=== PATIENT | male | born 2000 | race Caucasian/White ===

== ENCOUNTER 2022-01-21 10:05 | Emergency (ER) | payer OTHER, SELFPAY ==
[2022-01-21 10:15] VITALS: BP 160/89; PULSE 105; RESP 18; TEMP 36.8; O2SAT 98; BMI 26.4
--- NOTE | 2022-01-21 10:22 | W.ED.HA ---
HPI - Headache General: Chief Complaint: Headache Stated Complaint: hit head/ headaches Time Seen by Provider: 01/21/22 10:13 Source: patient Mode of arrival: ambulatory Limitations: no limitations History of Present Illness: 21-year-old male who states that he did hit his head on a cabinet Tuesday night. He states he has had some nausea with headaches since then. He states he had worsening headache yesterday but states today his headaches actually improved he states headaches currently 2 out of 10 he had no loss of conscious denies any vomiting denies any worsening improving factors. Denies any neck pain Associated symptoms: Deny chest pain, fever(s), nausea, rash or vomiting Review of Systems Const: Denies: fever(s), chills, body aches or change in appetite Eyes: Denies: blurry vision or eye discomfort ENMT: Denies: throat pain or dental pain Card: Denies: chest pain Resp: Denies: dyspnea GI: Denies: abdominal pain, nausea, vomiting or diarrhea : Denies: dysuria Musc: Denies: neck pain or back pain Skin/Breast: Denies: rash Neuro: Reports: headache(s) Psych: Denies: depression Rashard/Lymph: Denies: easy bruising All/Imm: Denies: urticaria PFSH ED PFSH: Medical History (Updated 01/21/22 @ 10:26 by Bailey Fitzgerald MD) No pertinent past medical history Social History (Updated 01/21/22 @ 10:26 by Bailey Fitzgerald MD) Substance/Drug Use: never Physical Exam Const: COMMON NORMALS: no acute distress, patient oriented x3 and healthy appearing HENMT: COMMON NORMALS: normocephalic and atraumatic HEAD & SCALP: normocephalic and atraumatic Eye: COMMON NORMALS: Equal, round and reactive pupils present and EOMs intact bilaterally PUPIL: Yes Equal, round and reactive pupils present Neck/C-Spine: COMMON NORMALS: full ROM and supple Chest: COMMONS NORMALS: normal inspection of the chest and normal palpation of entire chest wall Resp: COMMON NORMALS: normal respiratory effort, No retractions, No use of accessory muscles and clear to auscultation bilaterally AUSCULTATION: clear to auscultation bilaterally Cardio: COMMON NORMALS: regular rate, regular rhythm and No murmurs present (Cardio) RATE: regular rate RHYTHM: regular rhythm GI: COMMON NORMALS: Normal to inspection, nondistended, normoactive bowel sounds present, Soft to palpation, non-tender and no masses PALPATION: Yes Soft to palpation Extremity: COMMON NORMALS: normal to inspection and full ROM Neuro: COMMON NORMALS: patient oriented x3, moves all extremities and no focal motor deficits Psych: COMMON NORMALS: mental status grossly normal, Normal thought process present and cooperative THOUGHT PROCESS: Normal thought process present Skin: COMMON NORMALS: no rashes or lesions noted and no wounds GENERAL SKIN EXAM: no rashes or lesions noted Course Vital Signs: Vital signs: Vital Signs Temperature 98.2 F 01/21/22 10:15 Pulse Rate 105 H 01/21/22 10:15 Respiratory Rate 18 01/21/22 10:15 Blood Pressure 160/89 01/21/22 10:15 Pulse Oximetry 98 01/21/22 10:15 Oxygen Delivery Me thod 01/21/22 10:15 MDM - Headache Medical Decision Making Patient presents here with headache after hitting his head he likely has a concussion his headaches actually improved his headaches only a 2 out of 10 currently he had no vomiting he had no loss of consciousness he is well-appearing here he is no signs of any major injuries. He has no signs of subarachnoid hemorrhage or fracture or subdural he is stable for discharge he is to follow-up with PCP and return if worsening he understands agrees to plan. Discharge Plan Discharge Patient Disposition: Home Clinical Impression: Headache Qualifiers: Headache type: unspecified Headache chronicity pattern: acute headache Intractability: not intractable Qualified Code(s): R51.9 - Headache, unspecified Condition: Stable Discharge Orders: Discharge ED (Routine); Ordered 01/21/22 Ordered By: Bailey Fitzgerald Discharge Diet: Advance as tolerated Discharge Activity: Resume usual activity Patient Instructions: Acute Headache (ED) Coding Level of Care Code ED Regulatory Administrator for Dylan Najera
[2022-01-21] MEDS: ketorolac 60 mg/2 mL INJ IM (10:49)
== END 2022-01-21 10:45 | disposition home or self-care (01) ==
PROVIDERS: Emergency Provider Emergency Medicine
DX: R51.9 Headache, unspecified (principal)
CPT/HCPCS: 96372; 99284; J1885

== ENCOUNTER 2022-02-04 10:07 | Emergency (ER) | payer OTHER, SELFPAY ==
[2022-02-04 10:21] VITALS: BP 146/72; PULSE 124; RESP 18; TEMP 37.3; O2SAT 98; BMI 25.7
--- NOTE | 2022-02-04 10:50 | W.ED.HEATRA ---
HPI - Head Injury General: Chief complaint: Head Injury Stated complaint: Dizziness, headache Time Seen by Provider: 02/04/22 10:21 History of Present Illness: Patient is a 21-year-old male who comes to the ED with head injury. Patient says on Tuesday he opened his truck door and it hit him in the forehead. Denies any loss of consciousness or seizure-like activity. He has had a little bit of neck pain, back pain and a headache since injury. patient also reports a little bit of diarrhea and some body aches that started within the last 2 days. Denies any fevers. Associated symptoms: Reports neck pain; Deny nausea or vomiting Review of Systems Const: Denies: fever(s), chills or fatigue Eyes: Denies: change in vision or eye discomfort ENMT: Denies: throat pain, odynophagia, nasal discharge or nasal congestion Card: Denies: chest pain, palpitations, edema, swelling of feet/ankles, dyspnea on exertion or orthopnea Resp: Denies: dyspnea, productive cough or non-productive cough GI: Reports: diarrhea; Denies: abdominal pain, nausea, vomiting, constipation or hematochezia : Denies: flank pain, difficulty urinating, dysuria or hematuria Musc: Reports: neck pain and back pain; Denies: extremity swelling Skin/Breast: Denies: rash or new lesions Neuro: Denies: headache(s), numbness in extremities or weakness in extremities [facility] ED PFSH: Medical History (Updated 02/05/22 @ 11:02 by YOHANA Armendariz) No pertinent family history No pertinent past medical history Physical Exam Const: COMMON NORMALS: no acute distress and patient oriented x3 HENMT: COMMON NORMALS: normocephalic HEAD & SCALP: normocephalic MOUTH: Normal oral and palatal mucosa present THROAT: posterior oropharynx normal and uvula midline Eye: COMMON NORMALS: Equal, round and reactive pupils present and EOMs intact bilaterally GENERAL EYE: appearance normal, both eyes and all related structures PUPIL: Yes Equal, round and reactive pupils present Neck/C-Spine: COMMON NORMALS: supple GENERAL: Yes normal visual inspection Lymph: LYMPHATIC: no lymphadenopathy noted Resp: COMMON NORMALS: normal respiratory effort, No retractions, No use of accessory muscles and clear to auscultation bilaterally AUSCULTATION: clear to auscultation bilaterally Cardio: COMMON NORMALS: regular rate, regular rhythm, S1 normal heart sound present, S2 normal heart sound present, No gallops present (Cardio), No clicks present (Cardio), No murmurs present (Cardio) and Peripheral pulses 2+ throughout RATE: regular rate RHYTHM: regular rhythm HEART SOUNDS: S1 normal heart sound present and S2 normal heart sound present PERIPHERAL PULSES: Peripheral pulses 2+ throughout GI: COMMON NORMALS: Normal to inspection, nondistended, normoactive bowel sounds present, Soft to palpation, non-tender and no masses PALPATION: Yes Soft to palpation : COMMON NORMALS: Yes no CVA tenderness BLADDER/KIDNEY EXAM: Yes no CVA tenderness Back/Pelvis: COMMON NORMALS: no CVA tenderness Extremity: GENERAL: Yes normal exam except as noted Neuro: COMMON NORMALS: patient oriented x3, CN's II-XII intact bilaterally, moves all extremities, no focal motor deficits and no sensory deficits noted SENSORY EXAM: Yes extremities (intact) MOTOR EXAM: 5/5 motor strength present throughout Skin: COMMON NORMALS: no rashes or lesions noted GENERAL SKIN EXAM: no rashes or lesions noted and dry skin Course Vital Signs: Vital signs: Vital Signs Temperature 99.2 F 02/04/22 10:21 Pulse Rate 127 H 02/04/22 11:17 Respiratory Rate 18 02/04/22 11:17 Blood Pressure 146/72 02/04/22 10:21 Pulse Oximetry 98 02/04/22 11:17 MDM - Head Injury Medcial Decision Making Patient is a 21-year-old male comes in the ED with head injury. He hit himself in the head with a car door. Denies any loss of consciousness. He is having a little bit of headache and some neck pain. He also reports having some diarrhea and body aches. Vitals are stable. Patient appears nontoxic and in no acute distress or pain. Neuro exam showed no deficits.. Given his minor injury, no loss of consciousness and exam findings CT of the head was recommended. I told him to follow-up with his PCP within the next week for reevaluation. Return to ED precautions given. Patient understood and agreed with plan. Discharge Plan Discharge Patient Disposition: Home Clinical Impression: Viral syndrome Minor head injury without loss of consciousness Qualifiers: Encounter type: initial encounter Qualified Code(s): S09.90XA - Unspecified injury of head, initial encounter Condition: Stable Prescriptions: No Action Tylenol Ex Str Rapid Release 500 mg Tablet 1,000 mg PO Q6H PRN (Reason: Pain) Discharge Orders: Discharge ED (Routine); Ordered 02/04/22 Ordered By: Fortunato Loya Discharge Diet: Regular Discharge Activity: Increase activity as tolerated Patient Instructions: Head Injury (ED) Activity Restrictions/Additional Instructions: Follow-up with medical provider as directed. Take medications as prescribed. Return to the ER or your medical provider if condition worsens. Please read and understand discharge instructions. Thank you for choosing [facility] for your healthcare needs today. Please realize this is an emergency room and that we are providing you with a medical screening exam and this may not be complete and all inclusive of all the testing and or work up that you may need to determine your ailment or severity of your illness. It is very important that you follow up as instructed or that you return to the Emergency Department should you have concerns or if your condition changes or worsens in any way. Stand Alone Forms: Work/School Release Coding Level of Care Code ED News Library Director for Dylan Fwoneida Exam Comprehensive
[2022-02-04 11:17] VITALS: PULSE 127; RESP 18; O2SAT 98
== END 2022-02-04 11:18 | disposition home or self-care (01) ==
PROVIDERS: Emergency Provider Physician Assistant
DX: S09.90XA Unspecified injury of head, initial encounter (principal); W22.8XXA Striking against or struck by other objects, initial encounter
CPT/HCPCS: 99283